=== PATIENT | female | born 1950 | race Caucasian/White ===

== ENCOUNTER → 2020-12-10 | Outpatient (CLI) | payer OTHER | LOC: EXRD 14:49 | DX: Z29.9 Encounter for prophylactic measures, unspecified (principal); M85.88 Other specified disorders of bone density and structure, other site | CPT/HCPCS: 77080 ==

== ENCOUNTER → 2021-01-01 | Outpatient (CLI) | payer OTHER | LOC: MAMO 13:15 | DX: Z12.31 Encounter for screening mammogram for malignant neoplasm of breast (principal) | CPT/HCPCS: 77063; 77067 ==